=== PATIENT | male | born 1970 | race Caucasian/White ===

== ENCOUNTER 2022-03-12 11:53 | Inpatient (IN) | payer OTHER ==
[2022-03-12] MEDS ORDERED: IBUPROFEN 400 MG TABLET (FP) PO PRN (12:13)
[2022-03-12] MEDS ORDERED: MAGNESIUM HYDROX 2400MG/30ML ORAL SUSPENSION 30 ML CUP PO PRN (12:13)
[2022-03-12] MEDS ORDERED: MAGNESIUM CITRATE 300 ML BOTTLE PO PRN (12:13)
[2022-03-12] MEDS ORDERED: ACETAMINOPHEN 325 MG TABLET (FP) PO PRN (12:13)
[2022-03-12] MEDS ORDERED: MAG HYDROX/AL HYDROX/SIMETH 30 ML UNIT-DOSE CUP PO PRN (12:13)
[2022-03-12] MEDS ORDERED: LOPERAMIDE HCL 2 MG CAPSULE PO PRN (12:13)
[2022-03-12] MEDS ORDERED: guaiFENesin 200 MG/10 ML 10 ML UNIT-DOSE CUPS PO PRN (12:13)
[2022-03-12] MEDS ORDERED: NICOTINE 10 MG CARTRIDGE (INHALER) IH PRN (12:13)
[2022-03-12] MEDS ORDERED: P-EPHED 60MG/TRIPROLIDI 2.5MG TABLET PO PRN (12:13)
[2022-03-12 16:04] LABS: HEMATOCRIT 38.8 % (35.4-49); HEMOGLOBIN 13.4 GM/dL (11.7-16.9); MCH 30.8 pg (25.7-33.7); MCHC 34.4 g/dl (32.0-35.9); MEAN CELL VOLUME 89.5 fl (80-96); MEAN PLT VOLUME 9.4 fl (7.5-11.1); PLATELET COUNT 275 10^3/uL (134-434); RBC 4.34 M/mm3 (4.00-5.60); RDW 14.7 % (11.9-15.9)
[2022-03-12 16:12] VITALS: BMI 23.5
[2022-03-12 16:21] LABS: CALCIUM 8.6 mg/dL (8.5-10.1)
[2022-03-12 16:22] LABS: ALBUMIN 3.4 g/dl (3.4-5.0); BLOOD UREA NITROGEN 14.6 mg/dL (7-18)
[2022-03-12 16:25] LABS: CREATININE 0.8 mg/dL (0.55-1.3)
[2022-03-12 16:26] LABS: BILIRUBIN,TOTAL 0.3 mg/dL (0.2-1); TOT PROT 6.8 g/dl (6.4-8.2)
[2022-03-12 16:38] LABS: SYPHILIS W/ RPR CONF NON-REACTIVE (NONREACTIVE)
[2022-03-12] MEDS: PRENATAL VITAMINS W/ FOLIC ACID TABLET (FP) PO SCH (22:26)
[2022-03-12] MEDS: hydrOXYzine PAMOATE 25 MG CAPSULE (FP) PO SCH ×2 (22:26→22:28)
[2022-03-12] MEDS: MELATONIN 5 MG TABLETS PO SCH (22:28)
[2022-03-12] MEDS: THIAMINE HCL 100 MG TABLET (FP) PO SCH (22:28)
[2022-03-13] MEDS: hydrOXYzine PAMOATE 25 MG CAPSULE (FP) PO SCH ×5 (06:34→21:24)
[2022-03-13] MEDS: PRENATAL VITAMINS W/ FOLIC ACID TABLET (FP) PO SCH (09:44)
[2022-03-13] MEDS: NICOTINE 14 MG/24 HOURS TOPICAL PATCH TD SCH (09:44)
[2022-03-13] MEDS: MELATONIN 5 MG TABLETS PO SCH (21:24)
[2022-03-13] MEDS: THIAMINE HCL 100 MG TABLET (FP) PO SCH (21:24)
[2022-03-14] MEDS: hydrOXYzine PAMOATE 25 MG CAPSULE (FP) PO SCH ×5 (06:10→21:32)
[2022-03-14] MEDS: PRENATAL VITAMINS W/ FOLIC ACID TABLET (FP) PO SCH (09:03)
[2022-03-14] MEDS: NICOTINE 14 MG/24 HOURS TOPICAL PATCH TD SCH (09:03)
[2022-03-14] MEDS: MELATONIN 5 MG TABLETS PO SCH (21:31)
[2022-03-14] MEDS: THIAMINE HCL 100 MG TABLET (FP) PO SCH (21:31)
[2022-03-14] MEDS: BICTEGRAV/EMTRICIT/TENOFOV (BIKTARVY) 50-200-25 MG TABLET PO SCH (21:32)
[2022-03-15] MEDS: hydrOXYzine PAMOATE 25 MG CAPSULE (FP) PO SCH ×2 (06:28→09:58)
[2022-03-15 06:41] VITALS: BP 139/90; PULSE 99; TEMP 97.1
[2022-03-15] MEDS: NICOTINE 14 MG/24 HOURS TOPICAL PATCH TD SCH (09:57)
[2022-03-15] MEDS: PRENATAL VITAMINS W/ FOLIC ACID TABLET (FP) PO SCH (09:58)
[2022-03-15] MEDS: BICTEGRAV/EMTRICIT/TENOFOV (BIKTARVY) 50-200-25 MG TABLET PO SCH (09:58)
== END 2022-03-15 12:44 | disposition left against medical advice (07) | DRG 770 ==
LOC: YASAS 11:53 → Y3E 16:31
PROVIDERS: ADMIT Allergy & Immunology; ATTEND Psychiatry & Neurology Pain Medicine
PROC: HZ42ZZZ Group Counseling for Substance Abuse Treatment, Cognitive-Behavioral (ICD-10-PCS; principal; 2022-03-12)
DX: F14.20 Cocaine dependence, uncomplicated (principal); F17.210 Nicotine dependence, cigarettes, uncomplicated; Z21 Asymptomatic human immunodeficiency virus [HIV] infection status; I10 Essential (primary) hypertension
CPT/HCPCS: 36415; 80053; 83036; 84443; 85027; 86780; 86803; C9803-CS; U0003; U0005